=== PATIENT | male | born 1960 | race Caucasian/White ===

== ENCOUNTER 2016-11-24 05:09 | Day surgery (SDC) | payer OTHER ==
[2016-11-01 12:18] VITALS: BMI 32.6
[2016-11-24] MEDS ORDERED: PROPOFOL 20 ML ONE ×3 (07:39→08:32)
[2016-11-24] MEDS ORDERED: MIDAZOLAM HCL 2 MG/2 ML SINGLE DOSE VIAL ONE (07:39)
[2016-11-24] MEDS ORDERED: ceFAZolin SODIUM 1 GM VIAL IVPB ONE (08:15)
[2016-11-24] MEDS ORDERED: ceFAZolin SODIUM 1 GM VIAL ONE (08:17)
[2016-11-24] MEDS ORDERED: SODIUM CHLORIDE 0.9% P/F 10 ML VIAL IJ ONE (08:17)
[2016-11-24] MEDS ORDERED: LIDOCAINE HCL/PF 2% SDV 5ML VIAL ONE (08:19)
[2016-11-24] MEDS ORDERED: KETOROLAC TROMETHAMINE 30 MG/1 ML VIAL ONE (08:51)
--- NOTE | 2016-11-24 09:00 | OP ---
Operative Note - Note: Operative Date: 11/24/16 Pre-Operative Diagnosis: right CTS Operation: right CTR, tenosynovectomy Post-Operative Diagnosis: Same as Pre-op Surgeon: Bret Lai Anesthesiologist/MEETING SPECIALIST: Mark Menjivar Anesthesia: General, Local, MAC Specimens Removed: tenosynovium Estimated Blood Loss (mls): 0 Drains, Volume Out (mls): 0 Blood Volume Replaced (mls): 0 Fluid Volume Replaced (mls): 500 Operative Report Dictated: Yes
--- NOTE | 2016-11-24 09:01 | HP ---
[facility] - Chief Complaint Chief Complaint: right hand pain, numbness History of Present Illness: right CTS History Source: Patient Limitations to Obtaining History: No Limitations - Past Medical History Allergies/Adverse Reactions: Allergies Allergy/AdvReac Type Severity Reaction Status Date / Time No Known Drug Allergies Allergy Verified 11/24/16 07:07 - Current Medications Current Medications: Home Medications Medication Instructions Recorded Levothyroxine [Synthroid -] 150 mcg PO DAILY 08/26/11 Metoprolol Succinate [Toprol XL -] 50 mg PO DAILY 08/26/11 Aspirin [ASA -] 81 mg PO DAILY 03/17/12 Tramadol HCl 50 mg PO PRN 11/01/16 Satellite Physical Exam - Physical Examination Vital Signs: Vital Signs Period Temp Pulse Resp BP Sys/Chirinos Pulse Ox Last 24 Hr 98.4 F 66 18 127/74 95 General Appearance: Well Nourished ENT: Clear Lung: Clear to auscultation Heart: Regular rate & rhythm Breasts: Soft Abdomen: Soft Extremities: No edema Satellite Impression/Plan - Impression/Plan Impression: right CTS Operative Procedure: right CTR, tenosynovectomy Date to be Performed: 11/24/16
[2016-11-24] MEDS ORDERED: PROMETHAZINE HCL 25 MG/1 ML VIAL IVPUSH PRN (09:05)
[2016-11-24] MEDS ORDERED: ONDANSETRON 4 MG/2 ML VIAL IVPUSH PRN (09:05)
--- NOTE | 2016-11-24 09:13 | SPEC ---
DATE OF OPERATION: 11/24/2016 PREOPERATIVE DIAGNOSIS: Right carpal tunnel syndrome and tenosynovitis. POSTOPERATIVE DIAGNOSIS: Right carpal tunnel syndrome and tenosynovitis. PROCEDURE: Right carpal tunnel release and tenosynovectomy. SURGEON: Bret Lai MD ASSISTANTS: None. ANESTHESIOLOGIST: Mark Menjivar MD ANESTHESIA: MAC anesthesia, local injection of 12 mL of 0.5% Marcaine and 1% Lidocaine mix. DRAINS: None. COMPLICATIONS: None. SPECIMEN: Tenosynovium right wrist. BLOOD LOSS: None. BLOOD GIVEN: None. FLUID REPLACEMENT: 500 mL. INDICATIONS: This patient is a 56-year-old male with a preoperative diagnosis of severe recurrent right carpal tunnel syndrome. After understanding the potential risks, complications, alternatives and benefits of surgery versus nonsurgical treatment, the patient elected to undergo this procedure. DESCRIPTION OF PROCEDURE: The patient was brought to the operating room, peripheral IV placed and intravenous sedation was given. One gram of intravenous Ancef was given. MAC anesthesia was induced. A tourniquet was applied to the right upper arm and the right upper extremity was prepped and draped in sterile fashion. The entire case was done under 3.8 loupe magnification. A marking pen was utilized to frankie out a longitudinal incision in an already existing skin crease. Twenty mL of 0.5% Marcaine mixed with 1% Lidocaine was injected in and around the surgical incision. The right upper extremity was elevated, exsanguinated with an Esmarch bandage and the tourniquet inflated to 250mm of mercury. A No. 15 scalpel blade was utilized to cut down through the skin. Subcutaneous hemostasis was achieved with the bipolar cautery. Dissection was done through the superficial palmar fascia. Self-retaining retractors were placed into the wound. Under direct visualization, the transverse carpal ligament was transected with a No. 15 scalpel blade, exposing the median nerve and the contents of the carpal tunnel. The distal and proximal extents of the release were completed with a Littler scissor and checked with irrigation and my small finger. They were seen to be complete. Limited dissection was done on the radial side of the median nerve and more extensive dissection was done on the ulnar side of the median nerve. The patients nerve was seen to be quite compressed by epineurium and therefore a limited epineurotomy was performed. A Ragnell retractor was used to gently retract the median nerve in a radial direction. The patient had a lot of tenosynovitis and therefore a limited tenosynovectomy was performed off multiple flexor tendons, at least three. This was passed off the field as tenosynovium right wrist. The floor of the carpal tunnel was checked. There were no abnormal masses or ganglion cysts. The area was copiously irrigated and washed out and closure begun. Undyed 4-0 Vicryl was used to close the deep dermal layer. Final skin reapproximation was done with horizontal mattress 4-0 nylon sutures. The area was then washed and dried, covered with Xeroform, 4x4s, fluffs between the fingers, Webril and a 4-inch plaster roll was utilized to make a volar splint, which was then wrapped with Kelsey and Coban. The tourniquet was taken down after a total tourniquet time of 20 minutes. There were no complications during the case. The patient tolerated the procedure well and was brought to the ambulatory recovery room in stable condition. Manuel [id number]
[2016-11-24] MEDS ORDERED: LACTATED RINGERS SOLUTION 1,000 ML IV SCH (09:15)
[2016-11-24 09:42] VITALS: TEMP 97.8
[2016-11-24 11:10] VITALS: BP 138/74; PULSE 64
--- NOTE | 2016-11-29 14:47 | PATH ---
Surgical Pathology Report Patient Name: SIDRA RILEY [facility]. Rec. #: [id number] /Age/Gender: 1960 (Age: 56) / M Account: [id number] Location: [facility] Taken: 11/23/2016 Received: 11/24/2016 Reported: 11/29/2016 Physicians: Bret Lai M.D. Specimen(s) Received RIGHT TENOSYNOVIUM Clinical History Right carpal tunnel syndrome Final Diagnosis SOFT TISSUE, RIGHT WRIST, CARPAL TUNNEL RELEASE: TENOSYNOVIUM. Electronically Signed Faizan Hernandez M.D. Gross Description Received in formalin labeled "right tenosynovium," is a 2.7 x 2.7 x 0.3 cm aggregate of zafar soft tissue fragments, consistent with tenosynovium. The specimen is submitted in toto in one cassette. 11/24/201611/24/2016
== END 2016-11-24 11:05 | disposition home or self-care (01) ==
LOC: JASU-SURG 05:09
PROVIDERS: ATTEND Orthopaedic Surgery
PROC: 0LB50ZZ Excision of Right Lower Arm and Wrist Tendon, Open Approach (ICD-10-PCS; 2016-11-24)
PROC: 01N50ZZ Release Median Nerve, Open Approach (ICD-10-PCS; principal; 2016-11-24 08:00)
DX: G56.01 Carpal tunnel syndrome, right upper limb (principal); M65.831 Other synovitis and tenosynovitis, right forearm
CPT/HCPCS: 88304-TC; 94760

== ENCOUNTER 2017-04-21 11:32 | Emergency (ER) | payer BC ==
[2017-04-21 11:53] VITALS: TEMP 98.1; BMI 32.6
[2017-04-21] MEDS ORDERED: morphine CARPU-JECT 4 MG/1 ML DISP.SYRIN IVPUSH ONE (11:58)
[2017-04-21] MEDS ORDERED: ONDANSETRON 4 MG/2 ML VIAL IVPUSH ONE (11:58)
[2017-04-21] MEDS ORDERED: SODIUM CHLORIDE 0.9% 1000 ML INFUS.BAG IV ONE ×2 (11:58→15:21)
--- NOTE | 2017-04-21 12:01 | PDOC ---
History of Present Illness - General Chief Complaint: Pain Stated Complaint: SEVERE ABDOMINAL PAIN Time Seen by Provider: 04/21/17 11:57 - History of Present Illness Initial Comments: 04/21/17 15:24 Chief complaint nausea vomiting diarrhea abdominal pain History of present illness: 56-year-old gentleman past medical history significant for aortic dissection status post repair, aortic valve replacement hypothyroidism presents to the emergency department with 2 day history of severe nausea vomiting diarrhea abdominal pain. Patient has had between 15 and 20 episodes of vomiting and greater than 20 episodes of diarrhea. He is complaining of intermittent crampy moderate abdominal discomfort comes and goes sometimes is pain-free then comes back located in his epigastrium nonradiating not tearing in nature No travel no sick contacts. Past History - Past Medical History Allergies/Adverse Reactions: Allergies Allergy/AdvReac Type Severity Reaction Status Date / Time No Known Drug Allergies Allergy Verified 04/21/17 11:37 Home Medications: Ambulatory Orders Levothyroxine [Synthroid -] 150 mcg PO DAILY 08/26/11 Metoprolol Succinate [Toprol XL -] 50 mg PO DAILY 08/26/11 Aspirin [ASA -] 81 mg PO DAILY 03/17/12 Anemia: No Asthma: No Cancer: No Cardiac Disorders: Yes (VALVE REPLACEMENT, BOVINE VALVE AORTIC) CVA: No COPD: No CHF: No DVT: No Dementia: No Diabetes: No GI Disorders: No Disorders: No HTN: Yes Hypercholesterolemia: No Liver Disease: No Psychiatric Problems: Yes (anxiety) Seizures: No Thyroid Disease: Yes (HYPO) - Surgical History Abdominal Surgery: No Appendectomy: No Cardiac Surgery: Yes (open heart surgery and valve replacement) Cholecystectomy: No Lung Surgery: No Neurologic Surgery: No Orthopedic Surgery: Yes (LEFT HIP REPLACEMENT; ARTHROSCOPIC SHOULDER RIGHT) - Suicide/Smoking/Psychosocial Hx Smoking Status: No Smoking History: Never smoked Have you smoked in the past 12 months: No Number of Cigarettes Smoked Daily: 0 Information on smoking cessation initiated: No Hx Alcohol Use: Yes (RARE WINE) Drug/Substance Use Hx: No Substance Use Type: None Hx Substance Use Treatment: No Review of Systems - Review of Systems Comments:: 04/21/17 15:24 ROS: A complete review of 10 out of 10 review of systems is taken and is negative apart from what is previously mentioned below and in the HPI. *Physical Exam - Vital Signs Last Vital Signs Temp Pulse Resp BP Pulse Ox 98.1 F 100 H 20 108/72 98 04/21/17 11:36 04/21/17 11:36 04/21/17 11:36 04/21/17 11:36 04/21/17 11:36 - Physical Exam Comments: 04/21/17 15:24 Vitals: Triage Vital signs reviewed General Appearance: mild acute distress, well nourished well developed, Head: Atraumatic, Eyes: Pupils equal reactive round, extraocular movement intact Nose: Nares patent bilaterally;no nasal congestion Throat: Posterior oropharynx without erythema, mucous membranes moist, Neck: Supple;No Nucal rigidity Chest Wall: Nontender Cardiac: Regular rate and rhythym, no murmurs, no rubs, no gallops, Lungs: Clear to auscultation bilateral, good air movement bilaterally, Abdomen: Soft, non distended, normal bowel sounds, be gastric tender to palpation Ammann no pulsatile mass, no rebound, no guarding\ Extremities: Full range of motion to all extremities, no cyanosis, clubbing, or edema, good pulses in all extremities Skin: Warm and dry, no rashes or lesions, no rash, no petechiae Neuro: AOX3; Cranial Nerves 2-12 grossly intact, Strength intact to all extremities, Sensation intact to all extremities,gait normal Psych: normal mood, normal affect Heart Score/ECG Review - ECG Impressions Comment:: 04/21/17 15:27 EKG perfor 1132 demonstrates Sinus tachycardia at a rate of 112 inferior infarct age indeterminate. No ST elevations or T-wave inversions Interpreted by me. ED Treatment Course - LABORATORY CBC & Chemistry Diagram: 04/21/17 12:20 04/21/17 12:00 Medical Decision Making - Critical Care Time Total Critical Care Time (minutes): 35 Critical Care Statement: The care of this patient involved high complexity decision making to prevent further life threatening deterioration of the patient 's condition and/or to evaluate & treat vital organ system(s) failure or risk of failure. - Medical Decision Making 04/21/17 15:25 56 years old past medical history significant for aortic dissection status post repair, aortic valve repair, hypothyroidism presents with nausea vomiting diarrhea. Patient with almost 20 episodes of vomiting 20 episodes of diarrhea and intermittent moderate abdominal pain located in his epigastrium. Differential diagnosis includes food borne illness, viral GI illness, less likely surgical abdominal issue less likely aortic dissection On examination pain is reproducible in the epigastric region. It is not radiating is not pulsatile he has good pulses in all extremities We'll treat with IV fluids 1 dose pain medication Zofran labs EKG observe and reassess Reevaluation 3 PM patient feels much better labs unremarkable patient now tolerating fluids by mouth but blood pressure is slightly lower than his arrival. Given the amount of nausea and vomiting this is most likely volume depletion we'll hydrate with additional 2 L of fluid observe and reassess Reevaluation 5 pmafter 3 L normal saline patient still 90 systolic I do not believe patient to be septic I believe that his low blood pressure secondary to volume depletion as his hemoglobin and hematocrit is also hemoconcentrated Patient will require overnight resuscitation given his low blood pressure patient will be admitted to [facility] overnight for further hydration and further management. *DC/Admit/Observation/Transfer Diagnosis at time of Disposition: Acute vomiting Hypotension Qualifiers: Hypotension type: unspecified hypotension type Qualified Code(s): I95.9 - Hypotension, unspecified Diarrhea Qualifiers: Diarrhea type: unspecified type Qualified Code(s): R19.7 - Diarrhea, unspecified - Discharge Dispostion Condition at time of disposition: Fair Admit: Yes - Referrals - Patient Instructions - Post Discharge Activity
[2017-04-21] MEDS ORDERED: ONDANSETRON 4 MG/2 ML VIAL ONE (12:03)
[2017-04-21] MEDS ORDERED: morphine SULFATE 4 MG/ML VIAL ONE (12:03)
[2017-04-21 13:03] LABS: ALBUMIN 4.2 g/dl (3.5-5.0); ALK PHOS 72 U/L (32-92); ANION GAP 11 (8-16); BILIRUBIN,TOTAL 0.6 mg/dl (0.2-1.0); BLOOD UREA NITROGEN 22 mg/dl (7-18); CALCIUM 9.3 mg/dl (8.4-10.2); CHLORIDE 105 mmol/L (98-107); CO2 21 mmol/L (22-28); GLUCOSE,RANDOM 107 mg/dl (74-106); POTASSIUM 3.9 mmol/L (3.5-5.1); SGOT/AST 31 U/L (10-42); SGPT/ALT 21 U/L (10-40); SODIUM 137 mmol/L (136-145); TOT PROT 7.4 g/dl (6.4-8.3)
[2017-04-21 13:32] LABS: EOS % 0.7 % (0-4.5); HEMATOCRIT 51.3 % (35.4-49); HEMOGLOBIN 17.8 GM/dl (11.7-16.9); LYMPH % 5.4 % (8-40); MCH 29.8 pg (25.7-33.7); MCHC 34.7 g/dl (32.0-35.9); MEAN PLT VOLUME 8.8 fl (7.5-11.1); NEUT % 88.9 % (42.8-82.8); PLATELET COUNT 278 K/MM3 (134-434); RBC 5.97 M/mm3 (4.00-5.60); RDW 12.1 % (11.9-15.9); WHITE BLOOD COUNT 9.2 K/mm3 (4.0-10.8)
[2017-04-21] MEDS ORDERED: ACETAMINOPHEN 1000 MG/100 ML VIAL (NON FORMULARY) IVPB ONE (14:00)
[2017-04-21 14:01] LABS: LIPASE 127 U/L (73-393)
[2017-04-21] MEDS ORDERED: ACETAMINOPHEN INJECTION 100 ML IVPB ONE (14:14)
[2017-04-21 18:56] VITALS: BP 128/75; PULSE 80
--- NOTE | 2017-04-21 19:02 | PDOC ---
*Physical Exam - Vital Signs Last Vital Signs Temp Pulse Resp BP Pulse Ox 98.1 F 80 16 128/75 99 04/21/17 11:36 04/21/17 18:55 04/21/17 18:55 04/21/17 18:55 04/21/17 18:55 ED Treatment Course - LABORATORY CBC & Chemistry Diagram: 04/21/17 12:20 04/21/17 12:00 - ADDITIONAL ORDERS Additional order review: Laboratory Results 04/21/17 04/21/17 12:00 12:00 Sodium 137 Potassium 3.9 Chloride 105 Carbon Dioxide 21 L Anion Gap 11 BUN 22 H Creatinine 1.0 Creat Clearance w eGFR > 60 Random Glucose 107 H Calcium 9.3 Total Bilirubin 0.6 AST 31 ALT 21 Alkaline Phosphatase 72 Troponin I < 0.03 Total Protein 7.4 Albumin 4.2 Lipase 127 04/21/17 12:20 RBC 5.97 H MCV 86.0 MCHC 34.7 RDW 12.1 MPV 8.8 Neutrophils % 88.9 H Lymphocytes % 5.4 L Monocytes % 5.0 Eosinophils % 0.7 Basophils % 0.0 - Medications Given in the ED: ED Medications Discontinued Medications Generic Name Dose Route Start Last Admin Trade Name Freq PRN Reason Stop Dose Admin Acetaminophen 1,000 mg 04/21/17 14:00 04/21/17 14:18 Ofirmev Injection - IVPB 04/21/17 14:01 1,000 mg ONCE ONE Administration Morphine Sulfate 4 mg 04/21/17 11:58 04/21/17 12:08 Morphine Injection - IVPUSH 04/21/17 11:59 4 mg ONCE ONE Administration Ondansetron HCl 4 mg 04/21/17 11:58 04/21/17 12:10 Zofran Injection IVPUSH 04/21/17 11:59 4 mg ONCE ONE Administration Sodium Chloride 2,000 ml 04/21/17 11:58 04/21/17 12:00 Normal Saline - IV 04/21/17 11:59 2,000 ml ONCE ONE Administration Sodium Chloride 2,000 ml 04/21/17 15:21 04/21/17 15:59 Normal Saline - IV 04/21/17 15:22 2,000 ml ONCE ONE Administration Medical Decision Making - Medical Decision Making 04/21/17 19:00 Reevaluation: After fourth liter of fluid patient now normotensive not tachycardic we'll discharge home with prescription for Zofran he will home if no vomiting by tomorrow he will resume a bland diet he will follow-up with his doctor tomorrow Findings, the need for follow-up and strict return instructions discussed with patient. *DC/Admit/Observation/Transfer Diagnosis at time of Disposition: Acute vomiting Diarrhea Qualifiers: Diarrhea type: unspecified type Qualified Code(s): R19.7 - Diarrhea, unspecified - Discharge Dispostion Condition at time of disposition: Fair Admit: No Decision to Admit order Date/Time: Decision to Admit Order Category Date Time Status Decision to Admit to Hospital Routine Admission 04/21/17 16:27 Active - Referrals - Patient Instructions Printed Discharge Instructions: DI for Vomiting -- Adult Additional Instructions: Zofran as prescribed. Drink plenty of fluids. Follow-up with your doctor in 1- 2 days. Tomorrow if no vomiting proceed to a bland diet. Return to ED for any severe abdominal pain fever or for any concerns. - Post Discharge Activity
--- NOTE | 2017-04-26 12:53 | EKG ---
Test Reason : Blood Pressure : / mmHG Vent. Rate : 112 BPM Atrial Rate : 112 BPM P-R Int : 150 ms QRS Dur : 084 ms QT Int : 336 ms P-R-T Axes : 060 -58 035 degrees QTc Int : 458 ms SINUS TACHYCARDIA POSSIBLE LEFT ATRIAL ENLARGEMENT LEFT AXIS DEVIATION INFERIOR INFARCT , AGE UNDETERMINED ABNORMAL ECG WHEN COMPARED WITH ECG OF 26-MAY-1997 09:10, VENT. RATE HAS INCREASED BY 58 BPM QRS AXIS SHIFTED LEFT NONSPECIFIC T WAVE ABNORMALITY HAS REPLACED INVERTED T WAVES IN INFERIOR LEADS Confirmed by MD MARTIN, MARY KAY ([id number]) on 04/26/2017 12:53:02 PM Referred By: MD WILLIAM Confirmed By:MARY KAY SALAZAR MD
== END 2017-04-21 19:32 | disposition home or self-care (01) ==
LOC: FER 11:32
PROC: 3E0337Z Introduction of Electrolytic and Water Balance Substance into Peripheral Vein, Percutaneous Approach (ICD-10-PCS; principal; 2017-04-21)
PROC: 3E033GC Introduction of Other Therapeutic Substance into Peripheral Vein, Percutaneous Approach (ICD-10-PCS; 2017-04-21)
PROC: 3E033NZ Introduction of Analgesics, Hypnotics, Sedatives into Peripheral Vein, Percutaneous Approach (ICD-10-PCS; 2017-04-21)
DX: R11.10 Vomiting, unspecified (principal); I95.9 Hypotension, unspecified; R19.7 Diarrhea, unspecified; I10 Essential (primary) hypertension; F41.9 Anxiety disorder, unspecified; E03.9 Hypothyroidism, unspecified
CPT/HCPCS: 36415; 80053; 83690; 84484; 85025; 93005; 99284-25; J0131; J7030

== ENCOUNTER 2017-10-28 09:25 | Emergency (ER) | payer OTHER, BC ==
[2017-10-28 09:38] VITALS: BP 141/91; PULSE 76; TEMP 98.4; BMI 33.4
--- NOTE | 2017-10-28 10:07 | PDOC ---
History of Present Illness - General Chief Complaint: Injury Stated Complaint: RT KNEE INJURY Time Seen by Provider: 10/28/17 09:28 - History of Present Illness Initial Comments: 10/28/17 10:21 56 M with h/o aortic dissection s/p repair, L DORIS, presenting to ED with R knee pain. 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 Pt had difficulty bearing weight. Fell to the ground after the injury but denies any significant trauma. Pt denies pain in his ankle. Endorses mild pain in R hip. Denies numbness/tingling in his extremity. No headstrike/ LOC. No other injuries. Currently complains of mild pain in R knee that is exacerbated with flexion of the knee, as well as weight bearing. Past History - Past Medical History Allergies/Adverse Reactions: Allergies Allergy/AdvReac Type Severity Reaction Status Date / Time No Known Drug Allergies Allergy Verified 10/28/17 09:26 Home Medications: Ambulatory Orders Levothyroxine [Synthroid -] 150 mcg PO DAILY 08/26/11 Metoprolol Succinate [Toprol XL -] 50 mg PO DAILY 08/26/11 Aspirin [ASA -] 81 mg PO DAILY 03/17/12 Naproxen 500 mg PO BID #14 tablet 10/28/17 Zolpidem Tartrate [Ambien Cr] 12.5 mg PO HS 10/28/17 Anemia: No Asthma: No Cancer: No Cardiac Disorders: Yes (VALVE REAORTIC DISSECTION,PLACEMENT, BOVINE VALVE AORTIC ) CVA: No COPD: No CHF: No DVT: No Dementia: No Diabetes: No GI Disorders: No Disorders: No HTN: Yes Hypercholesterolemia: No Liver Disease: No Psychiatric Problems: Yes (anxiety) Seizures: No Thyroid Disease: Yes (HYPO) - Surgical History Abdominal Surgery: No Appendectomy: No Cardiac Surgery: Yes (open heart surgery and valve replacement) Cholecystectomy: No Lung Surgery: No Neurologic Surgery: No Orthopedic Surgery: Yes (LEFT HIP REPLACEMENT; ARTHROSCOPIC SHOULDER RIGHT) - Suicide/Smoking/Psychosocial Hx Smoking Status: No Smoking History: Never smoked Have you smoked in the past 12 months: No Number of Cigarettes Smoked Daily: 0 Information on smoking cessation initiated: No Hx Alcohol Use: (rarely) Drug/Substance Use Hx: No Substance Use Type: None Hx Substance Use Treatment: No Review of Systems - Review of Systems Comments:: 10/28/17 10:24 GENERAL/CONSTITUTIONAL: No fever or chills. No weakness. HEAD, EYES, EARS, NOSE AND THROAT: No change in vision. No ear pain or discharge. No sore throat. CARDIOVASCULAR: No chest pain or shortness of breath. RESPIRATORY: No cough, wheezing, or hemoptysis. GASTROINTESTINAL: No nausea, vomiting, diarrhea or constipation. GENITOURINARY: No dysuria, frequency, or change in urination. MUSCULOSKELETAL: + R knee pain SKIN: No rash NEUROLOGIC: No headache, vertigo, loss of consciousness, or change in strength/ sensation. ENDOCRINE: No increased thirst. No abnormal weight change. HEMATOLOGIC/LYMPHATIC: No anemia, easy bleeding, or history of blood clots. ALLERGIC/IMMUNOLOGIC: No hives or skin allergy. *Physical Exam - Vital Signs Last Vital Signs Temp Pulse Resp BP Pulse Ox 98.4 F 76 18 141/91 100 10/28/17 09:25 10/28/17 09:25 10/28/17 09:25 10/28/17 09:25 10/28/17 09:25 - Physical Exam Comments: 10/28/17 10:24 "GENERAL: Awake, alert, and fully oriented, in no acute distress. HEAD: No signs of trauma EYES: PERRLA, EOMI, sclera anicteric, conjunctiva clear ENT: Auricles normal inspection, hearing grossly normal, nares patent, oropharynx clear without exudates. Moist mucosa NECK: Nontender, no stepoffs, Normal ROM, supple, no lymphadenopathy, JVD, or masses LUNGS: Breath sounds equal, clear to auscultation bilaterally. No wheezes, and no crackles HEART: Regular rate and rhythm, normal S1 and S2, no murmurs, rubs or gallops ABDOMEN: Soft, nontender, normoactive bowel sounds. No guarding, no rebound. No masses EXTREMITIES: + mild TTP R hip, + R knee with limited active ROM 2/2 pain, full passive ROM, mild tenderness to proximal anterior tibia, no deformity or effusion, distal pulses intact, sensation intact throughout, no ankle tenderness NEUROLOGICAL: Cranial nerves II through XII intact. 5/5 strength and sensation in all extremities, Normal speech, normal gait, normal cerebellar function SKIN: Warm, Dry, normal turgor, no rashes or lesions noted." Medical Decision Making - Medical Decision Making 10/28/17 10:25 56 M with R knee pain after jumping onto R foot. No direct trauma to knee, making fx unlikely. However, given tenderness at proximal tibia and R hip, will r/o with XR. Likely MCL given + pain with valgus stress. - XR R hip, R knee - Toradol - f/u ortho 10/28/17 11:50 X ray negative Pt placed in knee immobilizer. Ortho f/u given. Pt is well appearing, with normal vitals. Clinically stable for DC at this time. I discussed the physical exam findings, ancillary test results and final diagnoses with the patient. I answered all of the patient's questions. The patient was satisfied with the care received and felt comfortable with the discharge plan and treatment plan. The patient agrees to follow up with the primary care physician within 24-72 hours. *DC/Admit/Observation/Transfer Diagnosis at time of Disposition: Knee pain - Discharge Dispostion Disposition: HOME Condition at time of disposition: Stable - Prescriptions Prescriptions: Naproxen 500 mg PO BID #14 tablet - Referrals Referrals: Nikunj Logan MD [Primary Care Provider] - Clayton Gonzalez MD [Staff Physician] - - Patient Instructions Printed Discharge Instructions: DI for Knee Pain Additional Instructions: Your X ray did not show any fractures today. However, this does not rule out other injuries such as a torn ligament or meniscus. You will need to be evaluated by an orthopedic surgeon and possibly have a MRI. Call the number provided to make an appointment with our orthopedist within 48 hours. Keep your leg in the knee immobilizer until you are cleared by an orthopedist. Take one naproxen every 12 hours for pain. If you experience worsening pain, swelling, numbness, or any other concerning symptoms, return to the ER immediately. - Post Discharge Activity Forms/Work/School Notes: Back to Work - Attestations Physician Attestion: 10/28/17 11:06 I, Dr. Clayton Pitt MD, attest that this document has been prepared under my direction and personally reviewed by me in its entirety. I further attest, that it accurately reflects all work, treatment, procedures and medical decision -making performed by me.
[2017-10-28] MEDS ORDERED: KETOROLAC TROMETHAMINE 30 MG/1 ML VIAL IM ONE (10:16)
[2017-10-28] MEDS ORDERED: KETOROLAC TROMETHAMINE 15 MG/ML VIAL ONE (10:27)
== END 2017-10-28 12:15 | disposition home or self-care (01) ==
LOC: FER 09:25
PROC: 3E0233Z Introduction of Anti-inflammatory into Muscle, Percutaneous Approach (ICD-10-PCS; principal; 2017-10-28)
DX: M25.561 Pain in right knee (principal); E03.9 Hypothyroidism, unspecified; I10 Essential (primary) hypertension; F41.8 Other specified anxiety disorders
CPT/HCPCS: 73523-TC-FY; 73562-TC-RT-FY; 99283-25

== ENCOUNTER 2017-11-24 08:52 | Day surgery (SDC) | payer OTHER, BC ==
[2017-11-24 09:19] VITALS: BMI 33.0
[2017-11-24] MEDS ORDERED: PROPOFOL 20 ML ONE (10:03)
[2017-11-24] MEDS ORDERED: oxyCODONE HCL 5 MG TABLET PO PRN ×2 (10:52)
[2017-11-24] MEDS ORDERED: ONDANSETRON 4 MG/2 ML VIAL IVPUSH PRN (10:52)
[2017-11-24] MEDS ORDERED: PROMETHAZINE HCL 25 MG/1 ML VIAL IVPUSH PRN (10:52)
--- NOTE | 2017-11-24 11:00 | OP ---
Operative Note - Note: Operative Date: 11/24/17 Pre-Operative Diagnosis: right knee medial meniscal tear Operation: right knee arthroscopy with partial medial meniscectomy Post-Operative Diagnosis: Same as Pre-op Surgeon: Clayton Gonzalez Anesthesiologist/CLIENT TECHNOLOGIES ANALYST: William Marrufo Anesthesia: General Operative Report Dictated: Yes
--- NOTE | 2017-11-24 11:07 | OP ---
DATE OF OPERATION: 11/24/2017 PREOPERATIVE DIAGNOSIS: Right knee medial meniscal tear. POSTOPERATIVE DIAGNOSIS: Right knee medial meniscal tear. PROCEDURE: Right knee arthroscopy with partial medial meniscectomy. SURGEON: Clayton Lomax MD ANESTHESIA: General. POSTOPERATIVE CONDITION: Stable. COMPLICATIONS: None. INDICATIONS: This is a pleasant, 57-year-old gentleman who has been suffering from medial knee pain. MRI demonstrated a medial meniscal tear. Treatment options including nonoperative versus operative management were reviewed. Operative risks were reviewed in detail including bleeding, infection, neurovascular injury, need for further surgery, postoperative pain and stiffness, progression of osteoarthritis. I discussed medical risks such as heart attack, stroke, DVT, PE, and . I reviewed the use of perioperative antibiotic and DVT prophylaxis. I addressed all the patient's questions and concerns. He voiced understanding and elected to proceed. DESCRIPTION OF PROCEDURE: The patient was brought to the operating room where general anesthesia was administered. The right lower extremity was then prepped and draped in the usual sterile fashion. A preoperative dose of antibiotics was given, and the usual timeout procedure was performed. The portal sites were then marked out. They were injected subcutaneously with 0.25% Marcaine. An 11 blade was now used to establish the lateral portal. An arthroscope was passed to the knee. Examination of the patellofemoral joint demonstrated some very minimal superficial cartilage wear. Passing the arthroscope down into the notch demonstrated intact ACL and PCL. The arthroscope was passed into the medial side where a medial portal was established under spinal needle localization. Examination of the medial side demonstrated also some mild superficial cartilage wear. There was a xfdufo-zeit-pibu tear noted at the junction of the posterior horn and body of the medial meniscus. Utilizing meniscal biter and shaver, this was debrided down to a stable base. It should be noted that at the base of the parrot-beak tear, a horizontal as well as vertical component was encountered, meaning this was more of a complex tear than initially visualized. Attention was then turned to the lateral compartment. Here, the meniscus was seen to be intact. No significant articular lesions were noted. At this point, the excess fluid was withdrawn from the knee. The portals were secured using 3-0 nylon. Sterile dressings were placed. The patient was extubated and transferred to recovery room in stable condition. CLAYTON LOMAX M.D. [id number]
[2017-11-24] MEDS ORDERED: ONDANSETRON 4 MG/2 ML VIAL ONE (11:23)
[2017-11-24] MEDS ORDERED: oxyCODONE HCL 5 MG TABLET ONE (12:09)
[2017-11-24 13:20] VITALS: BP 116/68; PULSE 69; TEMP 98
== END 2017-11-24 13:20 | disposition home or self-care (01) ==
LOC: FASU 08:52
PROVIDERS: ATTEND Orthopaedic Surgery Sports Medicine
PROC: 0SBC4ZZ Excision of Right Knee Joint, Percutaneous Endoscopic Approach (ICD-10-PCS; principal; 2017-11-24 10:17)
DX: S83.241A Other tear of medial meniscus, current injury, right knee, initial encounter (principal); X58.XXXA Exposure to other specified factors, initial encounter; Y93.9 Activity, unspecified; Y92.9 Unspecified place or not applicable
CPT/HCPCS: 94760

== ENCOUNTER → 2017-12-12 | Emergency (ER) | payer BC, OTHER ==
[~2017-12-12] MED LIST: ACETAMINOPHEN 1000 MG/100 ML VIAL (NON FORMULARY) IVPB ONE; ACETAMINOPHEN INJECTION 100 ML IVPB ONE; METOPROLOL TARTRATE 5 MG/5 ML VIAL IVPUSH ONE; METOPROLOL TARTRATE 5 MG/5 ML VIAL ONE; SODIUM CHLORIDE 0.9% 1000 ML INFUS.BAG IV ONE
--- NOTE | 2017-12-12 17:10 | PDOC ---
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 Pt states pain has been constant, but it waxes and wanes in intensity. Unsure what makes it better or worse. Pt states pain is just to the L of his sternum and radiates up to his neck and L jaw and then sometimes down his L arm to his fingers. Pt states recently sick with a viral URI. Pt denies f/c. Pt states he has had episodes of sweating and nausea with the pain. No sob. Pt was asymptomatic with his prior dissections. Pt denies abd pain. No n/v/d. No dysuria. No weakness. No cough. Pt c/o recent rhinorrhea and sore throat - and child had similar symptoms recently. Pmhx: aortic dissection, hypothyroid pshx: aortic valve replacement, aortic dissection of the root x 2 repair allergies: nkda Past History - Past Medical History Allergies/Adverse Reactions: Allergies Allergy/AdvReac Type Severity Reaction Status Date / Time No Known Drug Allergies Allergy Verified 12/12/17 17:06 Home Medications: Ambulatory Orders Levothyroxine [Synthroid -] 150 mcg PO DAILY 08/26/11 Metoprolol Succinate [Toprol XL -] 50 mg PO DAILY 08/26/11 Aspirin [ASA -] 81 mg PO DAILY 03/17/12 Zolpidem Tartrate [Ambien Cr] 12.5 mg PO HS 10/28/17 Anemia: No Asthma: No Cancer: No Cardiac Disorders: Yes (VALVE REAORTIC DISSECTION,PLACEMENT, BOVINE VALVE AORTIC ) CVA: No COPD: No CHF: No DVT: No Dementia: No Diabetes: No GI Disorders: No Disorders: No HTN: Yes Hypercholesterolemia: No Liver Disease: No Psychiatric Problems: Yes (anxiety) Seizures: No Thyroid Disease: Yes (HYPO) - Surgical History Abdominal Surgery: No Appendectomy: No Cardiac Surgery: Yes (open heart surgery and valve replacement) Cholecystectomy: No Lung Surgery: No Neurologic Surgery: No Orthopedic Surgery: Yes (LEFT HIP REPLACEMENT; ARTHROSCOPIC SHOULDER RIGHT) - Suicide/Smoking/Psychosocial Hx Smoking Status: No Smoking History: Never smoked Have you smoked in the past 12 months: No Number of Cigarettes Smoked Daily: 0 Hx Alcohol Use: (rarely) Drug/Substance Use Hx: No Substance Use Type: None Hx Substance Use Treatment: No Review of Systems - Review of Systems Able to Perform ROS?: Yes Is the patient limited Cymro proficient: No Constitutional: No: Chills, Fever HEENTM: No: Eye Pain, Blurred Vision Respiratory: No: Cough, Shortness of Breath Cardiac (ROS): Yes: Chest Pain, Chest Tightness. No: Lightheadedness, Palpitations ABD/GI: Yes: Nausea. No: Diarrhea, Vomiting, Abdominal cramping : No: Burning, Dysuria Musculoskeletal: Yes: Neck Pain, Other (jaw pain). No: Back Pain Integumentary: No: Bruising, Rash Neurological: Yes: Headache, Paresthesia. No: Numbness, Tingling, Weakness, Ataxia All Other Systems: Reviewed and Negative *Physical Exam - Vital Signs 12/12/17 18:14 Selected Entries 12/12/17 17:05 Pulse Rate 84 Respiratory 20 Rate Blood Pressure 156/93 Blood Pressure 114 Mean O2 Sat by Pulse 98 Oximetry (%) Weight 102.058 kg - Physical Exam General Appearance: Yes: Nourished, Appropriately Dressed, Other (ambulates with a steady gait) HEENT: positive: EOMI, MADDY, Normal Voice, Pharyngeal Erythema. negative: Tonsillar Exudate, Tonsillar Erythema, Rhinorrhea Neck: positive: Trachea midline, Supple. negative: Lymphadenopathy (R), Lymphadenopathy (L), Rigidity, Tender midline Respiratory/Chest: positive: Lungs Clear, Normal Breath Sounds. negative: Respiratory Distress Cardiovascular: positive: Regular Rhythm, Regular Rate, S1, S2 Gastrointestinal/Abdominal: positive: Normal Bowel Sounds, Soft. negative: Guarding, Rebound, Tenderness Musculoskeletal: positive: Normal Inspection. negative: CVA Tenderness Extremity: positive: Normal Capillary Refill, Normal Inspection, Normal Range of Motion. negative: Calf Tenderness Integumentary: positive: Normal Color, Dry, Warm Neurologic: positive: cancellation clerk II-XII NML intact, Fully Oriented, Alert, Normal Mood/ Affect, Normal Response, Motor Strength 5/5, Other (no focal neuro deficits) Heart Score/ECG Review - ECG Intrepretation Comment:: 12/12/17 17:42 sinus at 83, l axis deviation, poor r wave progression, t wave inversions III, no acute st/t wave findings ED Treatment Course - LABORATORY CBC & Chemistry Diagram: 12/12/17 18:12 12/12/17 18:12 Medical Decision Making - Medical Decision Making 12/12/17 17:42 a/p: 57yo male with 3-4 days of L sided cp that radiates to L neck, jaw, and L arm -recently with viral URI - all members of the family had similar complaints. -also with hx of aortic root dissection with 2 repairs at [facility] in the past, was asymptomatic at that time, has appt with [facility] next week with his documentation billing clerk -concern for dissection vs acs vs myocarditis vs pleural effusion from recent infection causing pain -will send labs, trop, ekg, cta chest -will need obs if cta negative for acs r/o -will give asa after obtain cta -will monitor and reassess 12/12/17 17:[address] padilla 12/12/17 18:57 trop negative labs reviewed and stable bp the same in both arms pending ct imaging mildly elevated wbc and plts - most likely from recent infection viral uri will continue to monitor pt will be signed out to the oncoming ED physician pending CTA for aortic dissection eval and if negative obs placement for acs r/o *DC/Admit/Observation/Transfer Diagnosis at time of Disposition: Chest pain - Discharge Dispostion Condition at time of disposition: Guarded Decision to Admit order: Yes - Referrals - Patient Instructions - Post Discharge Activity - Attestations Physician Attestion: 12/12/17 18:17 I, Dr. Padma Blackwell, DO, attest that this document has been prepared under my direction and personally reviewed by me in its entirety. I further attest, that it accurately reflects all work, treatment, procedures and medical decision -making performed by me.
[2017-12-12 18:00] VITALS: BMI 34.2
[2017-12-12 18:33] LABS: BASO % 0.3 % (0-2.0); EOS % 0.3 % (0-4.5); HEMATOCRIT 40.9 % (35.4-49); HEMOGLOBIN 13.6 GM/dl (11.7-16.9); LYMPH % 12.2 % (8-40); MCHC 33.3 g/dl (32.0-35.9); MEAN CELL VOLUME 87.2 fl (80-96); MEAN PLT VOLUME 8.4 fl (7.5-11.1); MONO % 8.3 % (3.8-10.2); NEUT % 78.9 % (42.8-82.8); PLATELET COUNT 435 K/MM3 (134-434); RBC 4.69 M/mm3 (4.00-5.60); RDW 11.8 % (11.9-15.9); WHITE BLOOD COUNT 11.2 K/mm3 (4.0-10.8)
[2017-12-12 18:37] LABS: ACTIVATED PTT 29.1 SECONDS (25.2-36.5)
[2017-12-12 18:40] LABS: ALBUMIN 4.2 g/dl (3.5-5.0); ALK PHOS 72 U/L (32-92); ANION GAP 9 MMOL/L (8-16); BILIRUBIN,TOTAL 0.5 mg/dl (0.2-1.0); BLOOD UREA NITROGEN 17 mg/dl (7-18); CALCIUM 9.2 mg/dl (8.4-10.2); CHLORIDE 100 mmol/L (98-107); CO2 25 mmol/L (22-28); CREATININE 0.9 mg/dl (0.6-1.3); GLUCOSE,RANDOM 110 mg/dl (74-106); POTASSIUM 4.3 mmol/L (3.5-5.1); SGOT/AST 18 U/L (10-42); SGPT/ALT 23 U/L (10-40); SODIUM 134 mmol/L (136-145); TOT PROT 7.4 g/dl (6.4-8.3)
[2017-12-12 18:41] LABS: INR 1.49 (0.82-1.09); PROTHROMBIN TIME (PATIENT) 16.6 SEC (10.2-13.0)
[2017-12-12 19:10] VITALS: PULSE 84
--- NOTE | 2017-12-12 19:43 | PDOC ---
*Physical Exam - Vital Signs Last Vital Signs Temp Pulse Resp BP Pulse Ox 84 20 156/93 98 12/12/17 19:09 12/12/17 17:05 12/12/17 19:09 12/12/17 19:09 ED Treatment Course - LABORATORY CBC & Chemistry Diagram: 12/12/17 18:12 12/12/17 18:12 - ADDITIONAL ORDERS Additional order review: Laboratory Results 12/12/17 12/12/17 12/12/17 18:12 18:12 18:12 PT with INR INR PTT (Actin FS) Sodium 134 L Potassium 4.3 Chloride 100 Carbon Dioxide 25 Anion Gap 9 BUN 17 Creatinine 0.9 Creat Clearance w eGFR > 60 Random Glucose 110 H Calcium 9.2 Total Bilirubin 0.5 AST 18 D ALT 23 Alkaline Phosphatase 72 Creatine Kinase 94 Troponin I < 0.03 Total Protein 7.4 Albumin 4.2 12/12/17 18:12 PT with INR 16.6 H INR 1.49 H PTT (Actin FS) 29.1 Sodium Potassium Chloride Carbon Dioxide Anion Gap BUN Creatinine Creat Clearance w eGFR Random Glucose Calcium Total Bilirubin AST ALT Alkaline Phosphatase Creatine Kinase Troponin I Total Protein Albumin 12/12/17 18:12 RBC 4.69 MCV 87.2 MCHC 33.3 RDW 11.8 L MPV 8.4 Neutrophils % 78.9 Lymphocytes % 12.2 D Monocytes % 8.3 Eosinophils % 0.3 Basophils % 0.3 D - Medications Given in the ED: ED Medications Discontinued Medications Generic Name Dose Route Start Last Admin Trade Name Freq PRN Reason Stop Dose Admin Acetaminophen 1,000 mg 12/12/17 17:37 12/12/17 18:22 Ofirmev Injection - IVPB 12/12/17 17:38 1,000 mg ONCE ONE Administration Sodium Chloride 1,000 ml 12/12/17 17:37 12/12/17 18:21 Normal Saline - IV 12/12/17 17:38 1,000 ml ONCE ONE Administration Progress Note - Progress Note Progress Note: Gen. this patient was transferred to ar from Dr. Blackwell at 7 PM. Patient is a 57-year-old male with history of aortic dissection at the root in the past. Patient comes in complaining of mid sternal/left of the sternum chest pain radiating to the neck jaw and down the arm. Patient has a CT angios of the chest pending to rule out dissection If CT angios the chest is negative patient will be admitted to an observation bed to rule out acute coronary syndrome. 22:00 CAT scan shows dissection of the left subclavian, right brachiocephalic and aortic arch. Dr. Green at [facility] was called and accepted patient for transfer to the ED where he will evaluate the patient further. *DC/Admit/Observation/Transfer Diagnosis at time of Disposition: Chest pain Qualifiers: Chest pain type: unspecified Qualified Code(s): R07.9 - Chest pain, unspecified Aortic dissection Qualifiers: Aortic location: thoracic aorta Qualified Code(s): I71.01 - Dissection of thoracic aorta - Discharge Dispostion Disposition: TRANSFER ACUTE CARE/OTHER HOSP Condition at time of disposition: Guarded - Referrals - Patient Instructions - Post Discharge Activity
[2017-12-12 20:04] LABS: LIPASE 183 U/L (73-393)
[2017-12-12 22:59] VITALS: BP 176/92
--- NOTE | 2017-12-13 16:11 | EKG ---
Test Reason : Blood Pressure : / mmHG Vent. Rate : 083 BPM Atrial Rate : 083 BPM P-R Int : 172 ms QRS Dur : 104 ms QT Int : 388 ms P-R-T Axes : 036 -39 010 degrees QTc Int : 455 ms NORMAL SINUS RHYTHM POSSIBLE LEFT ATRIAL ENLARGEMENT LEFT AXIS DEVIATION ABNORMAL ECG WHEN COMPARED WITH ECG OF 21-APR-2017 11:32, NO SIGNIFICANT CHANGE WAS FOUND Confirmed by MD MARTIN, MARY KAY ([id number]) on 12/13/2017 4:11:39 PM Referred By: [facility] Confirmed By:MARY KAY SALAZAR MD
== END | disposition short-term general hospital (02) ==
LOC: FER 17:04
PROC: 3E0337Z Introduction of Electrolytic and Water Balance Substance into Peripheral Vein, Percutaneous Approach (ICD-10-PCS; principal; 2017-12-12)
PROC: 3E033GC Introduction of Other Therapeutic Substance into Peripheral Vein, Percutaneous Approach (ICD-10-PCS; 2017-12-12)
DX: R07.9 Chest pain, unspecified (principal); I71.01 Dissection of thoracic aorta; I10 Essential (primary) hypertension; F41.9 Anxiety disorder, unspecified; E03.9 Hypothyroidism, unspecified; Z95.2 Presence of prosthetic heart valve
CPT/HCPCS: 36415; 71275-TC; 74160-TC; 80053; 82550; 83690; 83880; 84484; 85025; 85610; 85730; 86850; 86900; 86901; 93005; 99285-25; J0131; J7030

== ENCOUNTER 2018-07-19 10:22 | Emergency (ER) | payer BC, OTHER | END 2018-07-19 16:28 | disposition home or self-care (01) | LOC: FER 10:22 ==

== ENCOUNTER 2021-01-21 07:04 | Emergency (ER) | payer BC ==
[2021-01-21] MEDS ORDERED: ACETAMINOPHEN 325 MG TABLET (FP) PO ONE (07:24)
[2021-01-21] MEDS ORDERED: ACETAMINOPHEN 325 MG TABLET (FP) ONE (07:26)
[2021-01-21 07:27] VITALS: BMI 33.6
[2021-01-21] MEDS ORDERED: SODIUM CHLORIDE 1,000 ML IV STA (09:15)
[2021-01-21] MEDS ORDERED: BAMLANIVIMAB 700 MG, ETESEVIMAB 1,400 MG in SODIUM CHLORIDE 100 ML IVPB ONE (10:37)
[2021-01-21] MEDS ORDERED: METOCLOPRAMIDE HCL INJECTION 10 MG/2 ML VIAL IVPB ONE (12:11)
[2021-01-21] MEDS ORDERED: METOCLOPRAMIDE HCL INJECTION 10 MG/2 ML VIAL ONE (12:35)
[2021-01-21 13:35] VITALS: BP 104/52; PULSE 65; TEMP 98.8
== END 2021-01-21 15:14 | disposition home or self-care (01) ==
LOC: JCOVINFU 07:04 → JER 07:04 → JCOVINFU 15:14
PROC: 3E033GC Introduction of Other Therapeutic Substance into Peripheral Vein, Percutaneous Approach (ICD-10-PCS; principal; 2021-01-21)
DX: U07.1 COVID-19 (principal)
CPT/HCPCS: 99284-25; C9803; Q0245; U0003; U0005

== ENCOUNTER 2021-09-10 13:02 | Emergency (ER) | payer BC ==
[2021-09-10 13:25] VITALS: BMI 32.6
[2021-09-10] MEDS ORDERED: ACETAMINOPHEN 500 MG TABLET (FP) PO ONE (13:48)
[2021-09-10] MEDS ORDERED: BEBTELOVIMAB (EUA) 175 MG/2 ML VIAL IVPUSH ONE (14:04)
[2021-09-10 14:53] VITALS: RESP 18
[2021-09-10 16:00] VITALS: BP 116/65; PULSE 60; TEMP 98.4
== END 2021-09-10 16:16 | disposition home or self-care (01) ==
LOC: JER 13:02
PROC: 3E033GC Introduction of Other Therapeutic Substance into Peripheral Vein, Percutaneous Approach (ICD-10-PCS; principal; 2021-09-10)
DX: U07.1 COVID-19 (principal)
CPT/HCPCS: 96374; 99284-25; M0222; Q0222

== ENCOUNTER 2023-05-15 15:05 | Emergency (ER) | payer OTHER, BC ==
[2023-05-15] MEDS ORDERED: DIPHTH,PERTUSS(ACELL),TET 0.5 ML DISP.SYRIN IM ONE (15:27)
== END 2023-05-15 18:13 | disposition home or self-care (01) ==
LOC: FER 15:05
PROC: 0HQFXZZ Repair Right Hand Skin, External Approach (ICD-10-PCS; principal; 2023-05-15)
DX: S61.212A Laceration without foreign body of right middle finger without damage to nail, initial encounter (principal); W26.8XXA Contact with other sharp object(s), not elsewhere classified, initial encounter
CPT/HCPCS: 99283-25